=== PATIENT | male | born 1995 | race Caucasian/White ===

== ENCOUNTER 2017-09-24 04:10 | Emergency (ER) | payer SELFPAY ==
[2017-09-24] MEDS ORDERED: ONDANSETRON 4 MG/2 ML VIAL IVP ONE (04:13)
[2017-09-24] MEDS ORDERED: NS 1,000 ML IV ONE (04:13)
--- NOTE | 2017-09-24 04:15 | EDPHY ---
H & P Source: Patient, Police, EMS Time Seen by Provider: 09/24/17 04:13 HPI/ROS: HPI CHIEF COMPLAINT: Alcohol Intoxication , drug intoxication HISTORY OF PRESENT ILLNESS: Patient is a 22-year-old male, presents emergency room with alcohol intoxication and roommates in EMS report unknown drugs. They report that he did possibly LSD tonight and drank a large amount of alcohol. Unclear what drugs he did. He arrives to an apartment with his roommates in they state that he was vomiting and appeared to be highly intoxicated was unable to ambulate so 911 was called. He presents emergency room smelling of alcohol but stable vital signs he does respond to painful stimuli. Does not follow commands. No evidence of trauma on exam. Reported to me by EMS he had a normal blood glucose 150. Past Medical History: Unknown medical history Past Surgical History: No significant surgical history Social History: Large amount of alcohol this evening. Possibly other drugs. Family History: Noncontributory ROS REVIEW OF SYSTEMS: A comprehensive 10 point review of systems is otherwise negative aside from elements mentioned in the history of present illness. Exam Constitutional Intoxicated, triage nursing summary reviewed, vital signs reviewed, Sleepy, smells of alcohol Eyes normal conjunctivae and sclera, horizontal beating nystagmus consistent acute alcohol intoxication, otherwise pupils equal and react to light HENT normal inspection, atraumatic, moist mucus membranes, no epistaxis, neck supple/ no meningismus, no raccoon eyes. Respiratory clear to auscultation bilaterally, normal breath sounds, no respiratory distress, no wheezing. Cardiovascular rate normal, regular rhythm, no murmur, no edema, distal pulses normal. Gastrointestinal soft, non-tender, no rebound, no guarding, normal bowel sounds, no distension, no pulsatile mass. Genitourinary no CVA tenderness. Musculoskeletal no midline vertebral tenderness, full range of motion, no calf swelling, no tenderness of extremities, no meningismus, good pulses, neurovascularly intact. Skin pink, warm, & dry, no rash, skin atraumatic. Neurologic sleepy, intoxicated with alcohol,, alert and oriented x 3, AAOx3, moves all 4 extremities equally, motor intact, sensory intact, CN II-XII intact , , normal vision, normal speech. Psychiatric normal mood/affect. Heme/Lymph/Immune no lymphadenopathy. Differential Diagnosis: Includes but is not limited to in a particular order acute alcohol intoxication, alcohol abuse, dehydration, electrolyte abnormality , nausea vomiting from acute alcohol intoxication Medical Decision Making: Plan for this patient IV establishment blood draw, check serum alcohol level, check electrolytes, check blood glucose, full outside parts sales, monitor for worsening of condition monitor for sobriety. Re-evaluation: 0602: Alcohol level 200. Patient is resting comfortably stable vital signs this time still intoxicated. 0619: Patient ambulatory however very unsteady gait needs more time. 0700: Patient signed over to Dr. Raymond 7am Shift-change. Patient still metabolize his alcohol. Too intoxicated to be discharged at this time. Will need more time in re-evaluation. (Ramon Dominguez) Constitutional: Initial Vital Signs Temperature (C) 36.7 C 09/24/17 04:19 Heart Rate 80 09/24/17 04:19 Respiratory Rate 16 09/24/17 04:19 Blood Pressure 124/70 H 09/24/17 04:19 O2 Sat (%) 96 09/24/17 04:19 O2 Delivery Mode Room Air O2 (L/minute) 2 Allergies/Adverse Reactions: Unable to Assess Allergy (Unverified 09/24/17 04:15) Home Medications: Medication Instructions Recorded Unobtainable 09/24/17 Medical Decision Making Other Provider: [address] Dominguez pending improvement in mental status. 0845 patient is awake alert he is ambulating unassisted he is clinically sober. Patient admits to drinking alcohol dropping acid last night. He is acting appropriately out. He is medically cleared for discharge. (Farhad Raymond) - Data Points Laboratory Results: Laboratory Results 09/24/17 04:15 09/24/17 04:15 09/24/17 09/24/17 04:15 04:15 WBC 6.62 10^3/uL 10^3/uL (3.80-9.50) RBC 5.30 10^6/uL 10^6/uL (4.40-6.38) Hgb 17.0 g/dL g/dL (13.7-17.5) Hct 46.7 % % (40.0-51.0) MCV 88.1 fL fL (81.5-99.8) MCH 32.1 pg pg (27.9-34.1) MCHC 36.4 g/dL g/dL (32.4-36.7) RDW 12.1 % % (11.5-15.2) Plt Count 260 10^3/uL 10^3/uL (150-400) MPV 8.7 fL fL (8.7-11.7) Neut % (Auto) 77.2 % H % (39.3-74.2) Lymph % (Auto) 12.1 % L % (15.0-45.0) [place] % (Auto) 9.4 % % (4.5-13.0) Eos % (Auto) 0.0 % L % (0.6-7.6) Baso % (Auto) 0.5 % % (0.3-1.7) Nucleat RBC Rel Count 0.0 % % (0.0-0.2) Absolute Neuts (auto) 5.12 10^3/uL 10^3/uL (1.70-6.50) Absolute Lymphs (auto) 0.80 10^3/uL L 10^3/uL (1.00-3.00) Absolute Monos (auto) 0.62 10^3/uL 10^3/uL (0.30-0.80) Absolute Eos (auto) 0.00 10^3/uL L 10^3/uL (0.03-0.40) Absolute Basos (auto) 0.03 10^3/uL 10^3/uL (0.02-0.10) Absolute Nucleated RBC 0.00 10^3/uL 10^3/uL (0-0.01) Immature Gran % 0.8 % % (0.0-1.1) Immature Gran # 0.05 10^3/uL 10^3/uL (0.00-0.10) Sodium 143 mEq/L mEq/L (135-145) Potassium 3.6 mEq/L mEq/L (3.5-5.2) Chloride 107 mEq/L mEq/L (97-110) Carbon Dioxide 18 mEq/l L mEq/l (22-31) Anion Gap 18 mEq/L H mEq/L (8-16) BUN 10 mg/dL mg/dL (7-23) Creatinine 0.8 mg/dL mg/dL (0.7-1.3) Estimated GFR > 60 Glucose 104 mg/dL H mg/dL (70-100) Calcium 9.2 mg/dL mg/dL (8.5-10.4) Ethyl Alcohol 205 mg/dL H mg/dL (0-10) Medications Given: Discontinued Medications Sodium Chloride (Ns) 1,000 mls @ 0 mls/hr IV EDNOW ONE; Wide Open PRN Reason: Protocol Stop: 09/24/17 04:14 Last Admin: 09/24/17 04:16 Dose: 1,000 mls Ondansetron HCl (Zofran) 4 mg IVP EDNOW ONE Stop: 09/24/17 04:14 Last Admin: 09/24/17 04:16 Dose: 4 mg Departure - Departure Disposition: Home, Routine, Self-Care Clinical Impression: LSD overdose Alcoholic intoxication Qualifiers: Complication of substance-induced condition: uncomplicated Qualified Code(s): F10.920 - Alcohol use, unspecified with intoxication, uncomplicated Condition: Good Instructions: Alcohol Intoxication (ED), Abuse of Alcohol (ED) Referrals: Patient,NotPresent [Unknown] - As per Instructions
[2017-09-24 04:20] VITALS: RESP 16
[2017-09-24 04:29] LABS: PLATELET COUNT 260 10^3/uL (150-400)
[2017-09-24 08:43] VITALS: BP 132/106; PULSE 77; O2SAT 100
[2017-09-24 09:04] VITALS: TEMP 98.6
== END 2017-09-24 09:04 | disposition home or self-care (01) ==
DX: T40.8X1A Poisoning by lysergide [LSD], accidental (unintentional), initial encounter (principal); F10.920 Alcohol use, unspecified with intoxication, uncomplicated; E86.9 Volume depletion, unspecified
CPT/HCPCS: 96374; G0480; J2405